=== PATIENT | female | born 1985 | race Caucasian/White ===

== ENCOUNTER 2018-09-29 23:05 | Emergency (ER) | payer SELFPAY ==
[2018-09-30] MEDS: IPRATROPIUM (NEB) 0.5 MG/2.5 ML AMP NEB (00:10)
[2018-09-30] MEDS: ALBUTEROL 0.5% (NEB) 2.5 MG/0.5 ML AMP INH (00:11)
[2018-09-30] MEDS: LORAZEPAM 2 MG INJ IV (01:18)
== END 2018-09-30 01:49 | disposition home or self-care (01) ==
LOC: FTE 23:05
DX: F41.9 Anxiety disorder, unspecified (principal); R05 Cough
CPT/HCPCS: 71045; 81025; 93005; 94644; 96374; 99284-25